=== PATIENT | female | born 1940 | race Caucasian/White ===

== ENCOUNTER → 2016-07-03 | Outpatient (CLI) | payer MEDICARE | END | disposition home or self-care (01) | LOC: CFH 10:04 | PROVIDERS: ATTEND Internal Medicine | DX: Z13.820 Encounter for screening for osteoporosis (principal); M81.0 Age-related osteoporosis without current pathological fracture | CPT/HCPCS: 77080 ==

== ENCOUNTER 2017-06-21 16:28 | Emergency (ER) | payer MEDICARE ==
[~2017-06-21] VITALS: Ht 160 cm; Wt 58.0 kg
[2017-06-21] MEDS ORDERED: LISI5TAB7 PO (17:04)
[2017-06-21] MEDS ORDERED: DONE10TA14 PO (17:04)
[2017-06-21] MEDS ORDERED: CITA10TA4 PO (17:04)
[2017-06-21] MEDS ORDERED: PRIM50TA PO (17:07)
[2017-06-21] MEDS ORDERED: MEMA10TA PO (17:07)
[2017-06-21] MEDS ORDERED: ASPI-496 PO (17:07)
[2017-06-21 17:26] LABS: BASOPHILS # (AUTO) 0.07 x10^3/uL (0-0.1); BASOPHILS % (AUTO) 1 % (0-1); EOSINOPHILS # (AUTO) 0.14 x10^3/uL (0-0.4); EOSINOPHILS % (AUTO) 2 % (1-7); LYMPHOCYTES # (AUTO) 2.19 x10^3/uL (1-3.4); LYMPHOCYTES % (AUTO) 34 % (22-44); MD NO; MEAN CORPUSCULAR HEMOGLOBIN 32.7 pg (27.0-34.8); MEAN CORPUSCULAR HGB CONC 33.6 g/dL (32.4-35.8); MEAN CORPUSCULAR VOLUME 97.2 fL (80-100); MEAN PLATELET VOLUME 8.1 fL (7.4-10.4); MONOCYTES # (AUTO) 0.55 x10^3/uL (0.2-0.8); MONOCYTES % (AUTO) 9 % (2-9); NEUTROPHILS # (AUTO) 3.55 x10^3/uL (1.8-6.8); NEUTROPHILS % (AUTO) 55 % (42-75); PLATELET COUNT 265 x10^3/uL (130-400); RED BLOOD COUNT 4.42 x10^6/uL (3.82-5.3); RED CELL DISTRIBUTION WIDTH 13.9 % (9.6-15.2)
[2017-06-21 17:35] LABS: ALBUMIN 3.8 g/dL (3.4-5.0); ANION GAP 7 mmol/L (5-15); CALCIUM 8.6 mg/dL (8.5-10.1); CHLORIDE 111 mmol/L (98-107); CREATININE 0.98 mg/dL (0.55-1.02)
[2017-06-21 17:52] VITALS: BP 125/71
== END 2017-06-21 18:25 | disposition home or self-care (01) ==
LOC: ED 18:05
DX: J20.8 Acute bronchitis due to other specified organisms (principal); B96.89 Other specified bacterial agents as the cause of diseases classified elsewhere; I10 Essential (primary) hypertension; F03.90 Unspecified dementia, unspecified severity, without behavioral disturbance, psychotic disturbance, mood disturbance, and anxiety; Z88.0 Allergy status to penicillin
CPT/HCPCS: 36415; 71045; 80048; 82040; 85025; 99285

== ENCOUNTER 2017-09-22 16:41 | Emergency (ER) | payer MEDICARE ==
[~2017-09-22] VITALS: Ht 160 cm; Wt 63.7 kg
[~2017-09-22 16:41] MED LIST: ASPI-496 PO; CITA10TA4 PO; DONE10TA14 PO; LISI5TAB7 PO; MEMA10TA PO; PRIM50TA PO
[2017-09-22 19:39] VITALS: BP 129/78
== END 2017-09-22 19:41 | disposition home or self-care (01) ==
LOC: ED 19:15
DX: M19.90 Unspecified osteoarthritis, unspecified site (principal); I10 Essential (primary) hypertension
CPT/HCPCS: 99284

== ENCOUNTER 2017-10-26 14:24 | Emergency (ER) | payer MEDICARE ==
[~2017-10-26] VITALS: Ht 160 cm; Wt 63.3 kg
[2017-10-26 14:47] VITALS: BP 154/78
[2017-10-26] MEDS ORDERED: DEXAMETHASONE 4 MG TABLET ONE (15:09)
[2017-10-26] MEDS ORDERED: DEXAMETHASONE 4 MG TABLET PO ONE (15:30)
== END 2017-10-26 16:01 | disposition home or self-care (01) ==
LOC: ED 15:45
DX: L50.0 Allergic urticaria (principal); I10 Essential (primary) hypertension; F03.90 Unspecified dementia, unspecified severity, without behavioral disturbance, psychotic disturbance, mood disturbance, and anxiety
CPT/HCPCS: 99283

== ENCOUNTER 2018-05-08 15:35 | Emergency (ER) | payer MEDICARE ==
[~2018-05-08] VITALS: Ht 160 cm; Wt 66.1 kg
[2018-05-08 16:02] VITALS: BP 156/89
[2018-05-08] MEDS ORDERED: FAMOTIDINE 20 MG TABLET PO ONE (16:30)
--- NOTE | 2018-05-08 17:03 | NUR ---
Pt ambulated to room with this RN.
--- NOTE | 2018-05-08 17:12 | NUR ---
TAYLOR FRANCO, AT BEDSIDE TO EVALUATE PT.
[2018-05-08] MEDS ORDERED: FAMOTIDINE 20 MG TABLET ONE (17:17)
--- NOTE | 2018-05-08 17:25 | NUR ---
PT MEDICATED PER MAR.
--- NOTE | 2018-05-08 17:43 | NUR ---
Patient/Caregiver given discharge instructions and they have confirmed that they understand the instructions. Patient ambulatory with steady gait.
== END 2018-05-08 17:44 | disposition home or self-care (01) ==
LOC: ED 17:00
DX: L24.9 Irritant contact dermatitis, unspecified cause (principal); I10 Essential (primary) hypertension; G30.9 Alzheimer's disease, unspecified; F02.80 Dementia in other diseases classified elsewhere, unspecified severity, without behavioral disturbance, psychotic disturbance, mood disturbance, and anxiety
CPT/HCPCS: 99283; Q0177